=== PATIENT | female | born 1965 | race Asian ===

== ENCOUNTER 2023-08-03 09:38 | Outpatient (CLI) | payer BC | END 2023-08-03 09:39 | disposition home or self-care (01) | LOC: CSHULT 09:38 | PROVIDERS: ATTEND Family Medicine | DX: N92.4 Excessive bleeding in the premenopausal period (principal) | CPT/HCPCS: 76856 ==

== ENCOUNTER 2023-08-31 08:15 | Outpatient (CLI) | payer BC | END 2023-08-31 08:16 | disposition home or self-care (01) | LOC: CSHMAMMO 08:15 | PROVIDERS: ATTEND Family Medicine | DX: N63.21 Unspecified lump in the left breast, upper outer quadrant (principal); N63.15 Unspecified lump in the right breast, overlapping quadrants | CPT/HCPCS: 19083; 77066; 88305; 88341; 88342; G0279 ==

== ENCOUNTER 2023-10-10 10:08 | Outpatient (CLI) | payer BC | END 2023-10-10 10:09 | disposition home or self-care (01) | LOC: CSHLAB 10:08 | PROVIDERS: ATTEND Surgery | DX: Z01.818 Encounter for other preprocedural examination (principal); D24.2 Benign neoplasm of left breast | CPT/HCPCS: 93005; 93010 ==

== ENCOUNTER 2023-10-11 06:26 | Day surgery (SDC) | payer BC ==
[2023-10-10 10:56] VITALS: BMI 31.4
[2023-10-11] MEDS ORDERED: Dexamethasone 4 mg/ml Vial ONE (07:47)
[2023-10-11] MEDS ORDERED: Ketorolac Tromethamine 30 MG/ML VIAL ONE (07:47)
[2023-10-11] MEDS ORDERED: Lidocaine 1% PF 5 ML VIAL ONE (07:47)
[2023-10-11] MEDS ORDERED: Ondansetron PF 4 MG/2 ML Vial ONE (07:47)
[2023-10-11] MEDS ORDERED: PROPOFOL 20 ML ONE (07:47)
[2023-10-11] MEDS ORDERED: Midazolam HCl 2 mg/2 ml Vial ONE (07:47)
[2023-10-11] MEDS ORDERED: fentaNYL 50 mcg/mL 1 mL Vial ONE (07:47)
[2023-10-11] MEDS ORDERED: Bupivacaine PF 0.5% 30 ML VIAL ONE (08:15)
[2023-10-11] MEDS ORDERED: CEFAZOLIN 2 GM VIAL ONE (08:22)
[2023-10-11] MEDS ORDERED: EPINEPHrine 1 MG/ML AMP ONE (09:30)
[2023-10-11] MEDS ORDERED: Acetaminophen 325 MG TAB PO PRN (09:59)
[2023-10-11] MEDS ORDERED: HYDROcodone/Acetaminophen 5/325 mg Tablet PO PRN (09:59)
== END 2023-10-11 11:00 | disposition home or self-care (01) ==
LOC: CSHSDC 06:26
PROVIDERS: ATTEND Surgery
PROC: 0HB5XZX Excision of Chest Skin, External Approach, Diagnostic (ICD-10-PCS; principal; 2023-10-11)
PROC: 0HBU0ZZ Excision of Left Breast, Open Approach (ICD-10-PCS; 2023-10-11)
DX: D24.2 Benign neoplasm of left breast (principal); D05.12 Intraductal carcinoma in situ of left breast; N63.25 Unspecified lump in the left breast, overlapping quadrants; I10 Essential (primary) hypertension; M19.90 Unspecified osteoarthritis, unspecified site; Z79.899 Other long term (current) drug therapy; Z98.890 Other specified postprocedural states
CPT/HCPCS: 19281; 76098; 88307; C1713; J0171; J1100; J1885; J2250; J2405; J2704; J3010; S0020

== ENCOUNTER 2023-10-25 11:42 | Day surgery (SDC) | payer BC ==
[2023-10-24 09:16] VITALS: BMI 31.6
[2023-10-25] MEDS ORDERED: Bupivacaine PF 0.5% 30 ML VIAL ONE (12:51)
[2023-10-25] MEDS ORDERED: Lidocaine 1% PF 5 ML VIAL ONE (13:04)
[2023-10-25] MEDS ORDERED: Midazolam HCl 2 mg/2 ml Vial ONE ×2 (13:04→13:07)
[2023-10-25] MEDS ORDERED: Ondansetron PF 4 MG/2 ML Vial ONE (13:04)
[2023-10-25] MEDS ORDERED: fentaNYL 50 mcg/mL 1 mL Vial ONE (13:04)
[2023-10-25] MEDS ORDERED: PROPOFOL 20 ML ONE (13:04)
[2023-10-25] MEDS ORDERED: CEFAZOLIN 2 GM VIAL ONE (13:09)
[2023-10-25] MEDS ORDERED: ePHEDrine Sulfate 50 MG/10 ML VIAL ONE (13:58)
[2023-10-25] MEDS ORDERED: HYDROcodone/Acetaminophen 5/325 mg Tablet PO PRN (14:34)
[2023-10-25] MEDS ORDERED: Acetaminophen 325 MG TAB PO PRN (14:34)
== END 2023-10-25 15:20 | disposition home or self-care (01) ==
LOC: CSHSDC 11:42
PROVIDERS: ATTEND Surgery
PROC: 0HBU0ZZ Excision of Left Breast, Open Approach (ICD-10-PCS; principal; 2023-10-25)
DX: D05.12 Intraductal carcinoma in situ of left breast (principal); D24.2 Benign neoplasm of left breast; I10 Essential (primary) hypertension; E78.5 Hyperlipidemia, unspecified; M19.90 Unspecified osteoarthritis, unspecified site; Z79.899 Other long term (current) drug therapy
CPT/HCPCS: 88307; C1713; J2250; J2405; J2704; J3010; S0020

== ENCOUNTER 2024-08-29 09:30 | Outpatient (CLI) | payer BC | END 2024-08-29 09:31 | disposition home or self-care (01) | LOC: CSHMAMMO 09:30 | PROVIDERS: ATTEND Surgery | DX: D24.2 Benign neoplasm of left breast (principal) | CPT/HCPCS: 77066; G0279 ==

== ENCOUNTER 2024-11-07 14:06 | Outpatient (CLI) | payer OTHER | END 2024-11-07 14:07 | disposition home or self-care (01) | LOC: CSHCT 14:06 | PROVIDERS: ATTEND Internal Medicine | DX: E78.00 Pure hypercholesterolemia, unspecified (principal); I25.10 Atherosclerotic heart disease of native coronary artery without angina pectoris | CPT/HCPCS: 75571 ==

== ENCOUNTER 2024-12-11 08:11 | Outpatient (CLI) | payer BC | END 2024-12-11 08:12 | disposition home or self-care (01) | LOC: CSHMAMMO 08:11 | PROVIDERS: ATTEND Internal Medicine | DX: Z78.0 Asymptomatic menopausal state (principal); M85.88 Other specified disorders of bone density and structure, other site | CPT/HCPCS: 77080 ==

== ENCOUNTER 2025-09-01 10:02 | Outpatient (CLI) | payer BC | END 2025-09-01 10:03 | disposition home or self-care (01) | LOC: CSHMAMMO 10:02 | PROVIDERS: ATTEND Surgery | DX: Z08 Encounter for follow-up examination after completed treatment for malignant neoplasm (principal); Z85.3 Personal history of malignant neoplasm of breast | CPT/HCPCS: 77066; G0279 ==